=== PATIENT | male | born 1995 | race Two or more races ===

== ENCOUNTER 2022-02-08 19:14 | Emergency (ER) | payer OTHER ==
[~2022-02-08] VITALS: Ht 182.9 cm; Wt 83.9 kg
[2022-02-08 21:13] LABS: HEMATOCRIT 27.5 % (36.7-47.1); MEAN CORPUSCULAR HEMOGLOBIN 28.5 uug (23.8-33.4); MEAN CORPUSCULAR VOLUME 88.9 fL (73.0-96.2); PLATELET COUNT (AUTO) 172 K/uL (152-348)
[2022-02-08 21:18] LABS: POTASSIUM 4.8 mmol/L (3.5-5.1)
[2022-02-08 21:20] LABS: CREATININE 13.2 mg/dL (0.6-1.3)
[2022-02-08] MEDS ORDERED: OXYCODONE/APAP 5-325 MG TABLET PO ONE (22:15)
[2022-02-08] MEDS ORDERED: CEFAZOLIN 1 G in IV DEXTROSE 5% 50 ML IV ONE (23:45)
[2022-02-09] MEDS ORDERED: OXYC-128 PO (00:18)
[2022-02-09] MEDS ORDERED: CEPH250C PO (00:18)
[2022-02-09] MEDS ORDERED: CEFAZOLIN 1 G VIAL ONE (00:50)
[2022-02-09] MEDS ORDERED: OXYCODONE/APAP 5-325 MG TABLET ONE (00:50)
--- NOTE | 2022-02-09 01:06 | NUR ---
Patient discharged to home in stable condition. Written and verbal after care instructions given. Patient verbalizes understanding of instructions. Stressed follow up or return to ER for worsening s/s.
[2022-02-09 01:07] VITALS: BP 144/99
== END 2022-02-09 01:07 | disposition home or self-care (01) ==
LOC: ER 19:14
DX: L03.114 Cellulitis of left upper limb (principal); R00.0 Tachycardia, unspecified; I12.0 Hypertensive chronic kidney disease with stage 5 chronic kidney disease or end stage renal disease; N18.6 End stage renal disease; Z99.2 Dependence on renal dialysis
CPT/HCPCS: 36415; 73110; 85025; 85651; 87040; 87070; A4663; J0690